=== PATIENT | female | born 1990 | race Two or more races ===

== ENCOUNTER 2018-08-09 13:13 | Emergency (ER) | payer MEDICAID, OTHER ==
[~2018-08-09] VITALS: Ht 152.4 cm; Wt 59.0 kg
[2018-08-09 15:06] VITALS: BP 120/82
== END 2018-08-09 16:08 | disposition home or self-care (01) ==
LOC: ER 13:13
DX: M25.532 Pain in left wrist (principal); Z90.49 Acquired absence of other specified parts of digestive tract
CPT/HCPCS: 73110